=== PATIENT | female | born 2005 | race Caucasian/White ===

== ENCOUNTER 2025-05-31 06:23 | Outpatient (REF) | payer OTHER, SELFPAY ==
--- OUTSIDE RECORDS SUMMARY | 2024-03-27 05:00 | XMS_ITS ---
Author Organization [facility] Address [address] [place] [address] Care Team Providers Care Lead Vulcanizing Operator Name Role Phone Migration, Provider Unavailable Unavailable REASON FOR VISIT EMR-Joey Encounters Encounter Location Date Provider Diagnosis [facility] [address] [place] [address] 03/27/2024 Provider Migration Plan Of Treatment No Information Progress Notes * Sarmad VICKDOB:2004 (20 yo F)Acc No.[id number]:03/27/2024 Patient: Sarmad CRUZ Peter :2005 A ge:19 Y S ex:Female Phone: Address:[address] [place] [address], [place] [address] Subjective: * Chief Complaints: * E MR-Joey * Medical History: * Surgical History: * Hospitalization/Major Diagno stic Procedure: * Medications: Objective: * Vitals: * Physical Examination: Assessment: Plan: * Treatment: * Procedure Codes: * * Date:
--- OUTSIDE RECORDS SUMMARY | 2024-03-28 05:00 | XMS_ITS ---
Author Organization [facility] Address [address] [place] [address] Care Team Providers Care Rubber Boots And Shoes Repairer Name Role Phone Migration, Provider Unavailable Unavailable REASON FOR VISIT EMR-[facility] Medications Medication SIG (Take, Route, Frequency, Duration) Notes Start Date End Date Status Melatonin 1 MG Oral Tablet *Reorder from Medispan for eRx and Interaction Alerts* 04/01/2018 Active Encounters Encounter Location Date Provider Diagnosis [facility] [address] [facility] [address] [place] [address] 03/28/2024 Provider Migration Plan Of Treatment No Information Progress Notes * Sarmad BROWNINGDOB:2004 (20 yo F)Acc No.[id number]:03/28/2024 Patient: Sarmad CRUZ :2005 A ge:19 Y S ex:Female Phone: Address:[address] [place] [address], [place] [address] Subjective: * Chief Complaints: * E MR-Joey * Medical History: * Surgical History: * Hospitalization/Major Diagno stic Procedure: * Social History: M igrated Social History: M igrated Social History: Gender Identity : Female , Sexual Orientation : Straight or heterosexual. * Medications: T akingMelatonin 1 MG Oral Tablet , Notes to Pharmacist: *Reorder from Medispan for eRx and Interaction Alerts*Taking Melatonin 1 MG Oral Tablet , Notes to Pharmacist: *Reorder from Medispan for eRx and Interaction Alerts* Objective: * Vitals: * Physical Examination: Assessment: Plan: * Treatment: * Procedure Codes: * * Date:
--- NOTE | ~2025-05-31 | US_ITS ---
CLINICAL HISTORY: PELVIC PAIN, CHECK IUD PLACEMENT Transabdominal and transvaginal pelvic ultrasound Comparison: None Findings: Uterus 7.1 x 3.3 x 3.8 cm. Endometrium not measured. IUD in good position. No significant free fluid. Right ovary 2.7 x 1.5 x 2.9 cm. Left ovary 3.3 x 2.3 x 1.9 cm. No significant focal abnormality. Impression: No significant abnormality This document has been electronically signed by: Feliberto Alvarez MD on 05/31/2025 20:54:11
--- OUTSIDE RECORDS SUMMARY | 2025-05-31 06:25 | XMS_ITS | Patient Health Record ---
Author Organization [facility] Address [address] [facility] [address] [place] [address] Support Name Relationship Address Phone Sarmad Browning Guarantor Unknown Unavailable Reason For Referral No Information Medications Medication SIG (Take, Route, Frequency, Duration) Notes Start Date End Date Status Melatonin 1 MG Oral Tablet *Reorder from Refund Exchange for eRx and Interaction Alerts* 04/01/2018 Active Problems Problem Type SNOMED Code ICD Code Onset Dates Problem Status W/U Status Risk Notes Problem Abnormal weight gain (R63.5) 04/01/2018 Active confirmed Plan Of Treatment No Information
--- OUTSIDE RECORDS SUMMARY | 2025-05-31 06:26 | XMS_ITS | Patient Health Record ---
Author Organization [facility] Address [address] [place] [address] Care Team Providers Care Ceramics Test Engineer Name Role Phone 0 Word of mouth, . Primary Care Provider Unavail able Lakeisha Munguia Unavailable [phone] Wanda Mullins Unavailable Unavailable Allergies No Known Allergies Reason For Referral No Information Medications Medication SIG (Take, Route, Frequency, Duration) Notes Start Date End Date Status Aklief 0.005% 1 pump(s) applied topically once a day for 30 day(s) 03/20/2021 Active Benzoyl Peroxide 5% wash % wash face onc e to twice daily Active Concerta Active Lo Loestrin Fe (28 Day) Active Aczone 7.5% 1 magda applied topica lly once a day for 30 days 11/04/2022 Active sertraline Active Social History Tobacco Use: Social History Observation Description Date Details (start date - stop date) Never Smoker NA - NA Smoking Question Answer Notes Are you a: nonsmoker Alcohol Screen Question Answer Notes Did you have a drink containing alcohol in the p ast year? No Points 0 Interpretation Negative Problems Problem Type SNOMED Code ICD Code Onset Dates Problem Status W/U Status Risk Notes Problem Excoriation (092864848) Excoriation (919.8) Active confirmed Back. resovling. Problem Acne (43774732) Acne (706.1) Active confirmed mild flare on nose today. Advised pt to cleanse face with benzoyl peroxide wash 5% in the morning, wash face at night with cerave cleanser, apply differin gel to nose at night and cerave or cetaphil moisturizer when needed. 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 Nevi all appear normal today. Discussed watching nevi for changes. Photographs with scale taken with pt's mother's phone today. Will re-check in 6 months. If they appear to be changing we will biopsy. Problem Birthmark (90654706) Birthmark (757.32) Active confirmed Left upper back. Problem Solar degeneration (disorder) (12158525) Sun damage (L57.9) Active confirmed Patient has moderate sun damage. I advised sun avoidance and wearing SPF 45 sunscreen. Problem Eruptive melanocytic nevi (930660101) Melanocytic nevi (D22.9) Active confirmed Nevi all appear normal today. Discussed watching nevi for changes. Problem Acne vulgaris (23021611) Acne vulgaris (L70.0) Active confirmed Refilled Aklief to be used in the evening and Aczone to be used in the morning. Recommended mixing Aklief in a 1:1 ratio with moisturizer. Problem Pigmentation (34872153) Pigmentation (L81.9) Active confirmed Discussed pigmentation will lessen over time. Patient instructed to use SPF 30 daily. 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 Plan Of Treatment No Information Insurance Providers Payer Name Payer Address Payer Phone Subscriber Number Group Number Insured Name Patient Relationship to Insured Coverage Start Date Coverage End Date [employer] [address] [place] [phone] [id number] Stephania Robles Child - Insured does not have Financial Responsibility (includes legally adopted child) Medical (General) History Medical History History ICD Code History of melanoma No History of BCC No AIDS No Surgical History Surgery Date(Month/Year)
--- OUTSIDE RECORDS SUMMARY | 2025-05-31 06:26 | XMS_ITS | Clinical Summary ---
Author Organization [facility] Address [address] [place] [address] Care Team Providers Care Dev Manager Name Role Phone Wanda Mullins MD Primary Care Provider [phone] Yari Haque MD Unavailable [phone] Allergies No known active allergies Medications sertraline (ZOLOFT) 50 MG tablet Take 1 tablet by mouth daily. 10/08/19 24 Active methylphenidate HCl (CONCERTA) 18 MG CR tablet C2 CONTROLLED Take 1 tablet by mouth every morning. Active tirzepatide, weight loss, (ZEPBOUND) 2.5 mg/0.5 mL injectionIndica tions:BMI 29.0-29.9,adult Inject 0.5 mLs (2.5 mg total) into the skin once a week. 2 mL 05/20/20 25 Active norethindrone-e thinyl estradiol (MICROGESTIN 10/25) 1-20 mg-mcg per tablet Take 1 tablet by mouth in the morning. 84 tablet 3 01/07/20 25 025 Discontinued tirzepatide, weight loss, (ZEPBOUND) 5 mg/0.5 mL injectionIndica tions:Obesity without serious comorbidity, unspecified class, unspecified obesity type Inject 0.5 mLs (5 mg total) into the skin once a week. 2 mL 1 04/28/20 25 025 Discontinued tirzepatide, weight loss, (ZEPBOUND) 2.5 mg/0.5 mL injection Inject 0.5 mLs (2.5 mg total) into the skin once a week. 2 mL 05/17/20 25 025 Discontinued(Re order) Hospital, Clinic, or Other Facility Administered Medication Ordered Dose Route Frequency Start Date End Date Status levonorgestreL (Mirena) 21 mcg/24hr (up to 8 yrs) 52 mg IUDIndications:Encounter for insertion of Mirena IUD IU ONCE 05/16/2025 05/16/20 25 Ended Active Problems Problem Noted Date Diagnosed Date Sprain of right ankle 12/08/2023 Difficulty walking 12/08/2023 Vitamin D deficiency 10/24/2023 Obesity 10/07/2023 Encounters Date Type Department Care Team Description 05/20/2025 Orders Only [facility] [place] [phone] Eli Javed, FUR STORAGE CLERK-C BMI 29.0-29.9,adult (Primary Dx) 05/20/[address] [facility] [place] [phone] Kateryna Ramos 05/17/2025 11:00 AM EDT Office Visit [facility] [place] [address] Vishal Thomas, FUR STORAGE CLERK-C Obesity without serious comorbidity, unspecified class, unspecified obesity type (Primary Dx); Dietary counseling and surveillance; BMI 29.0-29.9,adult; Hyperlipidemia, unspecified hyperlipidemia type; Vitamin D deficiency; Mid back pain, chronic 05/16/2025 1:00 PM EDT Procedure visit [facility] [address] [place] [address] Agustin Monahan MD Encounter for insertion of Mirena IUD (Primary Dx); Urine test negative; Chronic low back pain, unspecified back pain laterality, unspecified whether sciatica present 04/28/2025 Telephone [facility] [address] [place] [address] Kateryna Ramos 04/21/2025 Telephone [facility] [address] [place] [address] Bharti Thayer from Last 3 Months Social History Tobacco Use Types Packs/Day Years Used Date Smoking Tobacco: Never Assessed Alcohol Use Standard Drinks/Week Comments No 0 (1 standard drink = 0.6 oz pur e alcohol) PHQ-2 Answer Date Recorded PHQ-2 Score 0 01/27/2025 Comments No Sex and Gender Information Value Date Recorded Sex Assigned at Not on file Legal Sex Female 8:35 PM EDT Gender Identity Not on file Sexual Orientation Not on file Last Filed Vital Signs Vital Sign Reading Time Taken Comments Blood Pressure 112/62 05/17/2025 11:16 AM EDT Pulse 78 05/17/2025 11:16 AM EDT Temperature 37 C (98.6 F) 05/17/2025 11:16 AM EDT Respiratory Rate 16 05/17/2025 11:16 AM EDT Oxygen Saturation 98% 05/17/2025 11:16 AM EDT Inhaled Oxygen Concentration - - Weight 81.6 kg (180 lb) 05/17/2025 11:16 AM EDT Height 165.1 cm (5' 5 ) 05/17/2025 11:16 AM EDT Body Mass Index 29.95 05/17/2025 11:16 AM EDT Plan of Treatment Upcoming Encounters Date Type Department Care Team (Late st Contact Info) Description 07/18/2025 12:00 PM EDT Office Visit [address] [place] [address] Vishal Thomas, JENNIFER-C [address] [facility] [address] [place] [address] Health Maintenance Due Date Last Done Comments COVID-19 Vaccine ( season) 2024 08/08/2023, 09/17/2022, 10/03/2021, Additional history exists Pap Only Screening 01/16/2025 TdaP/Td Vaccine (2 - Td or Tdap) 03/16/2025 03/16/2015 Influenza Vaccine (#1) 2025 3, 08/20/2022, 07/12/2021, Additional history exists Hepatitis B Vaccine Completed 03/13/2005, 2004, 2004 Hepatitis A Vaccine Completed 01/21/2008, 7 Meningococcal ACWY Vaccine Completed 03/07/2020, HPV Vaccine Completed 01/22/2022, 11/2019, 05/11/2019 Hepatitis C Screening Completed 07/24/2023 Pneumococcal Vaccine 19-49 years At Risk patient Aged Out No longer eligible based on patient's age to complete this topic Procedures Procedure Name Priority Date/Time Associated Diagnosis Comments INTRAUTERINE DEVICE Routine 05/16/2025 1 :35 PM EDT Encounter for insertion of Mirena IUD POCT HCG, URINE, BY VISUAL COLOR Routine 05/16/2025 1:03 PM EDT Urine test negative HEPATITIS C ANTIBODY Routine 07/24/2023 11:06 AM EDT Possible exposure to STD from Last 3 Months or Most Recently Relevant to Health Maintenance Results * INTRAUTERINE DEVICE (05/16/2025 1:35 PM EDT) Narrative Agustin Monahan MD - 05/16/2025 1:35 PM EDT Agustin Monahan MD 05/16/2025 1:36 PM IUD insertion Date/Time: 05/16/2025 1:35 PM Performed by: Agustin Monahan MD Authorized by: Agustin Monahan MD Consent: Consent obtained: Written Consent given by: Patient Procedure risks and benefits discussed: yes Patient questions answered: yes Patient agrees, verbalizes understanding, and wants to proceed: yes Procedure: Pelvic exam performed: yes Negative urine test: yes Cervix cleaned and prepped: yes Speculum placed in vagina: yes Tenaculum applied to cervix: yes Uterus sounded: yes Uterus sound depth (cm): 7 IUD inserted with no complications: yes IUD type: Mirena Strings trimmed: yes Post-procedure: Patient tolerated procedure well: yes Patient will follow up after next period: yes Comments: Patient is here for an IUD insertion. Her LMP is 04/26/25 She would like a Mirena IUD We discussed the risks/benefits/options and limitations of this procedure. I answered all of her questions and she signed the consent form. Uterine position verified mid to RV, speculum in vagina, betadine prep to cervix, allis on anterior lip of cervix, uterus sounded to 7, IUD placed without difficulty, good hemostasis, patient tolerated procedure well. Plan - Precautions reviewed - Return for IUD check in 4 weeks Agustin Monahan MD PROCEDURE/MINOR SURGICAL ORDERABLES Final Result * POCT , urine (87525) (05/16/2025 1:03 PM EDT) Preg Test, Ur Negative Negative, Not Tested, Inconclusive , Detected, Not Detected 05/16/2025 1:03 PM EDT Agustin Monahan MD POINT OF CARE TEST ORDERA BLES Final Result * Hepatitis C antibody (07/24/2023 11:06 AM EDT) Pathologist [facility] Hepatitis C Signal/Cutoff Non Reactive Non Reactive [facility] Comment: HCV antibody alone does not differentiate between previously resolved infection and active infection. Equivocal and Reactive HCV antibody results should be followed up with an HCV RNA test to support the diagnosis of active HCV infection. Blood (Blood, Venous) 07/24/2023 11:06 AM EDT 07/24/2023 Narrative [facility] - 07/27/2023 5:07 PM EDT Performed at: 01 - [facility] [id number] Laundry Helper: Giovanni Vang MD, Phone: [phone] us Yari Haque MD LAB BLOOD ORDERABLES Final Result [facility] [phone] from Last 3 Months or Most Recently Relevant to Health Maintenance Insurance [employer] C[employer] Care Teams Dev Manager Relationship Specialty Start Date End Date Wanda Mullins MD [address] [place] [address] [place] [address] PCP - General Pediatrics 12/12/13 Yari Haque MD [address] [place] [address] [address] [place] [address] Physician Obstetrics & Gynecology 07/23/23
== END 2025-05-31 06:24 | disposition home or self-care (01) ==
LOC: HO.UMASIMG 06:23
PROVIDERS: Visit Provider Internal Medicine
DX: R10.9 Unspecified abdominal pain (principal)
CPT/HCPCS: 76830; 76856

== ENCOUNTER → 2025-05-31 11:15 | Outpatient (BNV) | payer OTHER, SELFPAY | PROVIDERS: Visit Provider Radiology Diagnostic Radiology | DX: R10.2 Pelvic and perineal pain (principal) | CPT/HCPCS: 76830; 76856 ==